=== PATIENT | female | born 1995 | race Caucasian/White ===

== ENCOUNTER → 2024-10-23 | Outpatient (CLI) | payer BC | END | disposition home or self-care (01) | LOC: MRI 08:38 | DX: S83.281A Other tear of lateral meniscus, current injury, right knee, initial encounter (principal); M17.0 Bilateral primary osteoarthritis of knee; M25.462 Effusion, left knee; M25.461 Effusion, right knee; M25.762 Osteophyte, left knee; M25.761 Osteophyte, right knee; M71.22 Synovial cyst of popliteal space [Baker], left knee; M25.862 Other specified joint disorders, left knee; M25.861 Other specified joint disorders, right knee; M25.852 Other specified joint disorders, left hip; M25.851 Other specified joint disorders, right hip; M94.261 Chondromalacia, right knee; M65.961 Unspecified synovitis and tenosynovitis, right lower leg; M46.1 Sacroiliitis, not elsewhere classified; M25.561 Pain in right knee; M25.562 Pain in left knee; X58.XXXA Exposure to other specified factors, initial encounter; Y93.89 Activity, other specified; Y92.89 Other specified places as the place of occurrence of the external cause; Y99.8 Other external cause status | CPT/HCPCS: 73521; 73562; 73721 ==